=== PATIENT | male | born 1995 | race Two or more races ===

== ENCOUNTER 2016-12-13 11:00 | Emergency (ER) | payer OTHER ==
[2016-12-13 11:07] VITALS: BP 158/90
--- NOTE | 2016-12-13 12:11 | ED Physician Documentation ---
PD HPI UPPER EXT INJURY - Stated complaint Stated Complaint: R HAND INJ - Chief complaint Chief Complaint: Ext Problem - History obtained from History obtained from: Patient, Family - History of Present Illness Location: Right, Hand Type of injury: Other (states fell on the stairs last night, tried to catch himself and punched the wall.) Timing - onset: Last night Timing - duration: Days (1) Timing - details: Abrupt onset, Gradual onset Pain level max: 8 Pain level now: 6 Improved by: Rest, Ice, Immobilization Worsened by: Moving, Palpating Associated symptoms: Swelling, Discolored. No: Weakness, Numbness, Tingling Similar symptoms before: Has not had sx before Recently seen: Not recently seen Review of Systems Constitutional: denies: Fever Neurologic: denies: Focal weakness, Numbness PD PAST MEDICAL HISTORY - Past Medical History Past Medical History: No - Past Surgical History Past Surgical History: No - Present Medications Home Medications: Ambulatory Orders Medication Instructions Recorded Confirmed No Known Home Medications [No 12/13/16 12/13/16 Known Home Medications] - Allergies Allergies/Adverse Reactions: Allergies Allergy/AdvReac Type Severity Reaction Status Date / Time off spray Allergy Rash Uncoded 12/13/16 11:11 - Social History Does the pt smoke?: Yes Smoking Status: Current every day smoker Does the pt drink ETOH?: Yes ETOH Use: Wine, Beer, Liquor Does the pt have substance abuse?: No - Immunizations Immunizations are current?: Yes - POLST Patient has POLST: No PD ED PE NORMAL - Vitals Vital signs reviewed: Yes - General General: Alert and oriented X 3, No acute distress - Derm Derm: Warm and dry - Extremities Extremities: Other (TTP over the R 5th MCP joint. Swelling present. Limited ROM 2/2 pain. NVI) - Neuro Neuro: Alert and oriented X 3 - Psych Psych: Normal mood, Normal affect Results - Vitals Vitals: Vital Signs - 24 hr 12/13/16 11:00 Temperature 36.6 C Heart Rate 93 Respiratory 18 Rate Blood Pressure 158/90 H O2 Saturation 98 Oxygen O2 Source Room air - Rads (name of study) R hand xray Radiology: Prelim report reviewed, EMP read contemporaneously, See rad report ( Comminuted right fifth metacarpal neck and head fracture.) Procedures - Splint (location) R hand Splint applied by: Physician, Tech Type of splint: Short arm, Ulnar gutter Other: Patient tolerated well, No complications, Neurovascular intact PD MEDICAL DECISION MAKING - ED course Complexity details: reviewed results, re-evaluated patient, considered differential, d/w patient ED course: Patient is a 21-year-old male who fell walking up the stairs and accidentally punched the wall. Sustained a fifth metacarpal neck and head fracture. Placed in an ulnar gutter splint. We will have him follow-up with orthopedics [place] Declines any pain medication here or for home. Neurovascularly intact. Patient counseled regarding signs and symptoms for which I believe and urgent re-evaluation would be necessary. Patient with good understanding of and agreement to plan and is comfortable going home at this time This document was made in part using voice recognition software. While efforts are made to proofread this document, sound alike and grammatical errors may occur. Departure - Departure Disposition: 01 Home, Self Care Clinical Impression: Closed fracture of 5th metacarpal Qualifiers: Encounter type: initial encounter Metacarpal location: neck Fracture alignment : displaced Laterality: right Qualified Code(s): S62.336A - Displaced fracture of neck of fifth metacarpal bone, right hand, initial encounter for closed fracture Condition: Good Instructions: ED Rosalba Olmedo Follow-Up: [facility] [Provider Group] - Within 1 week Comments: [place] be sent to orthopedics as this may require surgery.
--- NOTE | 2016-12-13 12:12 | XRAY Preliminary Report ---
Exam: XR Hand 3 View RT IMPRESSION: Comminuted right fifth metacarpal neck and head fracture as described. [facility] SITE ID: [id number]
--- NOTE | 2016-12-13 12:15 | XRAY Report ---
EXAM: RIGHT HAND RADIOGRAPHY EXAM DATE: 12/13/2016 11:22 AM. CLINICAL HISTORY: Right hand injury, swelling. COMPARISON: None. TECHNIQUE: 3 views. FINDINGS: Bones: Acute comminuted fracture of the distal right fifth metacarpal evident. This includes a transv erse fracture through the neck and longitudinal fracture through the lateral head extending to the ma rgin of the joint space. Fracture is displaced by no more than 1 mm. Mild apex dorsal medial angulati on present. Joints: Normal. No subluxations. Soft Tissues: Normal. No soft tissue swelling. IMPRESSION: Comminuted right fifth metacarpal neck and head fracture as described. [facility] Referring Provider Line: [phone] SITE ID: [id number]
== END 2016-12-13 12:37 | disposition home or self-care (01) ==
LOC: ED 11:00
DX: S62.336A Displaced fracture of neck of fifth metacarpal bone, right hand, initial encounter for closed fracture (principal); W10.9XXA Fall (on) (from) unspecified stairs and steps, initial encounter; W22.01XA Walked into wall, initial encounter; F17.200 Nicotine dependence, unspecified, uncomplicated
CPT/HCPCS: 29125; 99283; 99284

== ENCOUNTER 2018-08-09 14:42 | Emergency (ER) | payer OTHER ==
[2018-08-09] MEDS ORDERED: predniSONE 20 MG TABLET PO STA (17:38)
--- NOTE | 2018-08-09 17:40 | ED Physician Documentation ---
History of Present Illness - Stated complaint Stated Complaint: CP/POSS ALLERGIC REACTION - Chief complaint Chief Complaint: Allergic Rx - History obtained from History obtained from: Patient - History of Present Illness Timing: Today (He had a Kiwi Fruit a few minutes before 3 and developed lip swelling and facial redness and throat numbness. This mostly all better now after taking Benadryl.) Review of Systems Constitutional: denies: Fever, Chills Nose: denies: Rhinorrhea / runny nose Throat: reports: Sore throat Cardiac: reports: Chest pain / pressure. denies: Palpitations Respiratory: denies: Dyspnea, Cough PD PAST MEDICAL HISTORY - Past Surgical History Past Surgical History: No - Present Medications Home Medications: Ambulatory Orders Medication Instructions Recorded Confirmed predniSONE [Deltasone] 60 mg PO DAILY 3 Days tablet 08/09/18 - Allergies Allergies/Adverse Reactions: Allergies Allergy/AdvReac Type Severity Reaction Status Date / Time kiwi Allergy Anaphylaxis Verified 08/09/18 14:55 off spray Allergy Rash Uncoded 12/13/16 11:11 - Social History Does the pt smoke?: Yes Smoking Status: Current every day smoker Does the pt drink ETOH?: Yes Does the pt have substance abuse?: No - Immunizations Immunizations are current?: Yes - POLST Patient has POLST: No PD ED PE NORMAL - Vitals Vital signs reviewed: Yes - General General: Alert and oriented X 3, No acute distress - HEENT HEENT: Other (No oropharyngeal angioedema) - Neck Neck: Supple, no meningeal sign, No bony TTP - Derm Derm: No rash - Neuro Neuro: Alert and oriented X 3, Normal speech Results - Vitals Vitals: Vital Signs - 24 hr 08/09/18 14:52 Temperature 36.8 C Heart Rate 77 Respiratory 16 Rate Blood Pressure 138/85 H O2 Saturation 97 Oxygen O2 Source Room air - EKG (time done) 1451 Rate: Rate (enter#) (82) Rhythm: NSR Caro: Normal Intervals: Normal [place] QRS: Normal Ischemia: Normal ST segments Computer interpretation: Agree with computer Departure - Departure Disposition: 01 Home, Self Care Clinical Impression: Allergic urticaria Condition: Good Record reviewed to determine appropriate education?: Yes Instructions: ED Urticaria Prescriptions: predniSONE [Deltasone] 60 mg PO DAILY 3 Days tablet Comments: Return for any new or worsening symptoms or if you develop a recurrence. Do not eat kiwi fruit anymore. Your blood pressure was elevated today on check into the emergency department. This does not mean that you have hypertension, it is a common phenomenon to come to the emergency department and have elevated blood pressure. I recommend that you see your primary care physician within the week to have it rechecked when you are feeling better.
[2018-08-09 17:49] VITALS: BP 139/97
== END 2018-08-09 17:55 | disposition home or self-care (01) ==
LOC: ED 14:42
DX: L50.0 Allergic urticaria (principal); F17.200 Nicotine dependence, unspecified, uncomplicated
CPT/HCPCS: 93005; 99283; J7512

== ENCOUNTER 2020-03-24 22:38 | Emergency (ER) | payer OTHER ==
--- NOTE | 2020-03-24 23:23 | ED Physician Documentation ---
PD HPI FEVER - Stated complaint Stated Complaint: FEVER - Chief complaint Chief Complaint: Resp - History obtained from History obtained from: Patient - History of Present Illness Timing - onset: How many days ago (5) Timing duration: Days Timing details: Intermittant Associated symptoms: Chills, Sweats, Nasal congestion, Productive cough. No: Chest pain Similar symptoms before: No diagnosis Recently seen: Clinic - Additional information Additional information: c/o fever, chills, diaphoresis. he has fevers 5 days ago, evaluated at [facility] and had covid test (resulted negative). he says his fevers lasted 2-3 days then resolved, but returned today with Tmax 102-103 (different reading right vs left ear at home). 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 he has mild, wet cough but otherwise no other symptoms. Review of Systems Constitutional: reports: Fever, Chills, Myalgias, Sweats Ears: denies: Ear pain Throat: reports: Sore throat (mild, says he thinks it is due to coughing) Cardiac: reports: Reviewed and negative Respiratory: reports: Cough. denies: Dyspnea GI: reports: Reviewed and negative : denies: Dysuria, Frequency Skin: denies: Rash Musculoskeletal: denies: Neck pain Neurologic: denies: Headache PD PAST MEDICAL HISTORY - Past Medical History Past Medical History: No - Past Surgical History Past Surgical History: No - Present Medications Home Medications: Ambulatory Orders Medication Instructions Recorded Confirmed Acetaminophen [Tylenol Arthritis] 650 mg PO ONCE 03/24/20 03/24/20 - Allergies Allergies/Adverse Reactions: Allergies Allergy/AdvReac Type Severity Reaction Status Date / Time kiwi Allergy Anaphylaxis Verified 03/24/20 22:58 off spray Allergy Rash Uncoded 03/24/20 22:58 - Social History Does the pt smoke?: Yes Smoking Status: Current every day smoker Does the pt drink ETOH?: Yes Does the pt have substance abuse?: No - Immunizations Immunizations are current?: Yes - POLST Patient has POLST: No PD ED PE NORMAL - Vitals Vital signs reviewed: Yes - General General: Alert and oriented X 3, No acute distress, Well developed/nourished - HEENT HEENT: Ears normal, Moist mucous membranes, Other (mild posterior o/p erythema without exudate or edema) - Neck Neck: Supple, no meningeal sign - Cardiac Cardiac: RRR - Respiratory Respiratory: No respiratory distress, Clear bilaterally - Abdomen Abdomen: Soft, Non tender - Back Back: No CVA TTP Results - Vitals Vitals: Vital Signs - 24 hr 03/24/20 03/25/20 22:45 01:29 Temperature 38.8 C H 37.2 C Heart Rate 98 70 Respiratory 16 16 Rate Blood Pressure 141/90 H 140/89 H O2 Saturation 98 95 Oxygen O2 Source Room air - Labs Labs: Laboratory Tests 03/25/20 00:05 Group A Strep Rapid Negative PD MEDICAL DECISION MAKING - ED course Complexity details: reviewed results, considered differential, d/w patient Departure - Departure Disposition: Home, Self Care Clinical Impression: Fever Qualifiers: Fever type: unspecified Qualified Code(s): R50.9 - Fever, unspecified Condition: Good Instructions: ED Fever Unconf Cause Follow-Up: [facility] [Provider Group] Discharge Date/Time: 03/25/20 01:29
[2020-03-25 00:16] LABS: RAPID STREP SCREEN Negative (Negative)
[2020-03-25] MEDS ORDERED: IBUPROFEN 600 MG TABLET PO STA (00:19)
[2020-03-25 01:30] VITALS: BP 140/89
== END 2020-03-25 01:29 | disposition home or self-care (01) ==
LOC: ED 22:38
DX: R50.9 Fever, unspecified (principal); F17.200 Nicotine dependence, unspecified, uncomplicated; Z20.828 Contact with and (suspected) exposure to other viral communicable diseases
CPT/HCPCS: 87070; 87430; 87635; 99282; 99283; A9270

== ENCOUNTER 2023-08-27 17:48 | Emergency (ER) | payer OTHER ==
[2023-08-27 18:01] VITALS: O2SAT 98
--- NOTE | 2023-08-27 18:24 | XRAY Report ---
PROCEDURE: Hand 3+V RT INDICATIONS: punched wall, pain to lateral hand and 5th digit TECHNIQUE: 3 views of the hand(s) acquired. COMPARISON: 12/13/2016 FINDINGS: Bones: There is a fracture deformity at the distal fifth metacarpal. No definite acute lucency. Soft tissues: No suspicious calcifications. Soft tissue swelling is present. IMPRESSION: Fracture deformity of the distal fifth metacarpal, without definite acute lucency. Suspected soft tis kyle swelling. However, if there is sufficient concern, consider repeat radiography or cross-sectional imaging. Reviewed by: Misha Fuentes MD on 08/27/2023 6:23 PM PST Approved by: Misha Fuentes MD on 08/27/2023 6:23 PM PST Station ID: [id number]
--- NOTE | 2023-08-27 18:32 | ED Physician Documentation ---
PD HPI UPPER EXT INJURY - Stated complaint Stated Complaint: RT HAND INJ - Chief complaint Chief Complaint: Trauma Ext - History obtained from History obtained from: Patient - History of Present Illness Location: Right Pain level max: 8 Pain level now: 5 Improved by: Rest, Ice, Immobilization Worsened by: Moving, Palpating Associated symptoms: Swelling Recently seen: Not recently seen - Additonal information Additional information: 27-year-old male, active duty [employer] presents to the emergency department with a right hand injury after punching a wall approximately 2 hours ago. He states that he has broken this hand previously. Worse with movement, better with rest. There is swelling to the site. Review of Systems Constitutional: denies: Fever, Chills GI: denies: Vomiting, Diarrhea Skin: denies: Rash Musculoskeletal: denies: Neck pain, Back pain Neurologic: denies: Headache PD PAST MEDICAL HISTORY - Past Medical History Past Medical History: No - Past Surgical History Past Surgical History: No - Allergies Allergies/Adverse Reactions: Allergies Allergy/AdvReac Type Severity Reaction Status Date / Time kiwi Allergy Anaphylaxis Verified 08/27/23 17:55 off spray Allergy Rash Uncoded 08/27/23 17:55 - Social History Does the pt smoke?: Yes Smoking Status: Current every day smoker Does the pt drink ETOH?: Yes Does the pt have substance abuse?: No - Immunizations Immunizations are current?: Yes - POLST Patient has POLST: No PD ED PE NORMAL - Vitals Vital signs reviewed: Yes - General General: Alert and oriented X 3, No acute distress - Extremities Extremities: Other (R hand - Abrasions to the dorsum of the right hand. There is tenderness over the fifth metacarpal at the MCP joint. Mild swelling. No deformity. Neurovascular intact. Otherwise normal exam of the hand and wrist) - Neuro Neuro: Alert and oriented X 3 Results - Vitals Vitals: Vital Signs - 24 hr 08/27/23 08/27/23 17:52 18:56 Temperature 36.8 C Heart Rate 86 80 Respiratory 16 18 Rate Blood Pressure 143/90 H 146/100 H O2 Saturation 98 98 Oxygen O2 Source Room air - Rads (name of study) Right hand x-ray Relevant Findings:: Final report received, See rad report Procedures - Splint (location) - Minor Right hand Splint applied by: Physician Type of splint: Other (Velcro boxer splint) Other: Patient tolerated well, No complications, Neurovascular intact PD Medical Decision Making - ED course Complexity details: reviewed results, re-evaluated patient, considered differential, d/w patient ED course: Fracture deformity of the right fifth metacarpal on x-ray though no acute lucency seen. Likely that this is a chronic deformity from his prior fracture. Placed in a Velcro boxers fracture splint. Tolerated well. Neurovascularly intact. We will have him reassessed in 1 week with repeat x-rays and repeat evaluation with his doctor to exclude fracture, think that this more likely represents contusion and swelling. Patient counseled regarding signs and symptoms for which I believe and urgent re-evaluation would be necessary. Patient with good understanding of and agreement to plan and is comfortable going home at this time This document was made in part using voice recognition software. While efforts are made to proofread this document, sound alike and grammatical errors may occur. Departure - Departure Disposition: 01 Home, Self Care Clinical Impression: Right hand pain Condition: Good Instructions: ED Sprain Hand Follow-Up: your,doctor in 1 week [Other] [facility] [Provider Group] Comments: Please follow-up with your doctor for further care. Please return if you worsen. Your x-ray reading is below. There is a fracture deformity at the distal fifth metacarpal, there is no acute lucency, this may represent the old fracture. Given your pain at this site however, we have placed you into a Velcro splint. Please stay in this until seen by your doctor next week. They can repeat x-rays at that time. You can use Motrin or Tylenol as needed for pain. Please return if you worsen. PROCEDURE: Hand 3+V RT INDICATIONS: punched wall, pain to lateral hand and 5th digit TECHNIQUE: 3 views of the hand(s) acquired. COMPARISON: 12/13/2016 FINDINGS: Bones: There is a fracture deformity at the distal fifth metacarpal. No definite acute lucency. Soft tissues: No suspicious calcifications. Soft tissue swelling is present. IMPRESSION: Fracture deformity of the distal fifth metacarpal, without definite acute luce ncy. Suspected soft tissue swelling. However, if there is sufficient concern, consider repeat radiography or cross- sectional imaging. Forms: PCP List Discharge Date/Time: 08/27/23 18:56
[2023-08-27 18:57] VITALS: BP 146/100
== END 2023-08-27 18:56 | disposition home or self-care (01) ==
LOC: ED 17:48
DX: M79.641 Pain in right hand (principal); W22.8XXA Striking against or struck by other objects, initial encounter
CPT/HCPCS: 29125; 99283

== ENCOUNTER 2024-02-12 09:21 | Emergency (ER) | payer OTHER ==
--- NOTE | 2024-02-12 11:07 | ED Physician Documentation ---
PD HPI BACK PAIN - Stated complaint Stated Complaint: BACK PX,SOA - Chief complaint Chief Complaint: Back Pain - Additional information Additional information: 28-year-old male with history of upper back injury but no other pertinent past medical history presents emergency department for shortness of breath and upper back pain after doing overhead benchpress exercises at the gym. Patient says about 5 to 6 years ago a heavy item was dropped on his upper back at work and since then he has been having some upper or lower back pain flares. Today while he was doing overhead benchpress he felt immediate upper back pain. He went to the clinic for further evaluation and they sent him here to the emergency department for his shortness of breath. No history of pneumothorax or other lung issues. He says that his pain has gotten slightly better since he is here at rest but is worried if he stands up it is going to trigger it again he has not taken any medicine for this. PD PAST MEDICAL HISTORY - Past Medical History Musculoskeletal: Chronic back pain - Past Surgical History Past Surgical History: No - Present Medications Home Medications: Ambulatory Orders Medication Instructions Recorded Confirmed No Known Home Medications 02/12/24 02/12/24 - Allergies Allergies/Adverse Reactions: Allergies Allergy/AdvReac Type Severity Reaction Status Date / Time kiwi Allergy Anaphylaxis Verified 08/27/23 17:55 off spray Allergy Rash Uncoded 08/27/23 17:55 - Social History Does the pt smoke?: Yes Smoking Status: Current every day smoker Does the pt drink ETOH?: Yes Does the pt have substance abuse?: No - Immunizations Immunizations are current?: Yes - POLST Patient has POLST: No PD ED PE NORMAL - Vitals Vital signs reviewed: Yes - General General: Alert and oriented X 3, No acute distress, Well developed/nourished - HEENT HEENT: Atraumatic - Cardiac Cardiac: RRR, No murmur, No gallop, Strong equal pulses - Respiratory Respiratory: No respiratory distress, Clear bilaterally - Back Back: No CVA TTP, No spinal TTP - Derm Derm: Normal color, Warm and dry, No rash - Extremities Extremities: No deformity, No edema, No calf tenderness / cord - Free text exam Free text exam: Neck and back are without deformity, external skin changes, or signs of trauma. Curvature of the cervical, thoracic, and lumbar spine are within normal limits. Bony features of the shoulders and hips are of equal height bilaterally. Posture is upright, gait is smooth, steady, and within normal limits. No tenderness noted on palpation of the spinous processes. Spinous processes are midline. Cervical, thoracic, and lumbar paraspinal muscles are not tender and are without spasm. No discomfort is noted with flexion, extension, and [id number] rotation of the cervical spine, full range of motion is noted. Full range of motion including flexion, extension, and [id number] rotation of the thoracic and lumbar spine are noted and without discomfort. Straight leg raise test is negative bilaterally. Sensation to the upper and lower extremities is normal bilaterally. No clonus is noted. Technician Terminal And Repeater strength is normal bilaterally. Dorsi/plantar flexion is normal bilaterally. Results - Vitals Vitals: Vital Signs - 24 hr 02/12/24 09:27 Temperature 36.4 C L Heart Rate 81 Respiratory 18 Rate Blood Pressure 130/94 H O2 Saturation 100 Oxygen O2 Source Room air - Rads (name of study) Chest x-ray Relevant Findings:: Final report received, EMP independent interpretation of test, Other (No pneumothorax no other acute cardiopulmonary abnormalities or findings.) PD Medical Decision Making - ED course ED course: This patient presents with back pain most consistent with musculoskeletal spasm/strain. No back pain red flags on history or physical. Presentation not consistent with malignancy (lack of history of malignancy, lack of B symptoms), fracture (no trauma, no bony tenderness to palpation), transverse myelitis, (no sensory loss, no distal weakness), thoracic aortic dissection (equal peripheral pulses, no tachycardia, story does not fit), pneumonia (afebrile, no infectious symptoms), pulmonary embolism (Wells low risk), osteomyelitis or epidural absce ss (no IVDU, vertebral tenderness). Chest x-ray was complete to rule out possible pneumothorax which is found to be unremarkable. Patient's pain significantly improved with a shot of Toradol as well as Tylenol he was offered muscle relaxers but kindly declined he was given tips how to manage his upper back pain at home and told to follow-up with primary care provider for physical therapy referral return precautions given all questions answered patient safe for discharge. Departure - Departure Disposition: 01 Home, Self Care Clinical Impression: Muscle strain of upper back Instructions: ED Back Care Tips, ED Spasm Back No Trauma Comments: Thank you for trusting us with your care. We have given you a Toradol shot here in the emergency department as well as 1000 mg of Tylenol. You can alternate between 1000 mg of Tylenol every 8 hours and 500 mg of Aleve every 12 hours for pain and discomfort make sure that you keep moving no heavy lifting until this pain has fully resolved. Follow-up with your primary care provider for possible physical therapy referral you can apply ice 20 minutes at a time to the sore area. Wishing you a speedy recovery.
[2024-02-12] MEDS: ACETAMINOPHEN 500 MG TABLET PO STA (11:10)
[2024-02-12] MEDS: KETOROLAC 30 MG/ML VIAL IM STA (11:10)
--- NOTE | 2024-02-12 11:45 | XRAY Report ---
PROCEDURE: Chest 1V INDICATIONS: SOA with working out TECHNIQUE: One view of the chest was acquired. COMPARISON: None. FINDINGS: Surgical changes and devices: None. Lungs and pleura: No dense consolidation or pleural effusion Mediastinum: Normal heart size Bones and chest wall: Unremarkable IMPRESSION: No acute radiographic abnormality on this single view study. Reviewed by: Misha Fuentes MD on 02/12/2024 11:44 AM PDT Approved by: Misha Fuentes MD on 02/12/2024 11:44 AM PDT Station ID: [id number]
[2024-02-12 12:04] VITALS: BP 131/87; O2SAT 99
== END 2024-02-12 11:57 | disposition home or self-care (01) ==
LOC: ED 09:21
DX: S29.012A Strain of muscle and tendon of back wall of thorax, initial encounter (principal); X50.9XXA Other and unspecified overexertion or strenuous movements or postures, initial encounter; F17.200 Nicotine dependence, unspecified, uncomplicated
CPT/HCPCS: 71045; 96372; 99283; 99284; A9270